=== PATIENT | male | born 1985 | race Caucasian/White ===

== ENCOUNTER 2024-05-11 07:51 | Day surgery (SDC) | payer OTHER ==
[~2024-05-11] VITALS: Ht 190.5 cm; Wt 86.3 kg
[~2024-05-11 07:51] MED LIST: LR 1,000 ML IV SCH; Ondansetron 4 MG/2 ML VIAL IV PRN
[2024-05-11 08:53] VITALS: BP 111/81; PULSE 53; TEMP 97.3
[2024-05-11] MEDS ORDERED: MOBIC15 MG PO (08:55)
[2024-05-11] MEDS ORDERED: ZOVIRAX400 MG PO (08:55)
[2024-05-11] MEDS ORDERED: PROTONIX 40MG T40 MG PO ×2 (08:56→09:27)
[2024-05-11] MEDS ORDERED: CRESTOR5 MG PO (09:01)
[2024-05-11] MEDS ORDERED: DESYREL 100MG100 MG PO (09:02)
[2024-05-11] MEDS ORDERED: Lidocaine PF 2% (20 MG/ML) 5 ML VIAL ONE (09:03)
[2024-05-11 09:30] VITALS: BP 107/82; PULSE 62
[2024-05-11 09:45] VITALS: BP 120/47; PULSE 73
[2024-05-11 10:00] VITALS: BP 117/82; PULSE 58
--- NOTE | 2024-05-11 14:20 | NUR ---
0930 PATIENT RETURNS TO [facility] [place] [facility] VIA CART. PT AWAKE AND ALERT. RESPIRATIONS UNLABORED. AMBULATED TO RECLINER CHAIR WITH 2:1 SBA. PT DENIES NAUSEA OR ABDOMINAL PAIN. HOOKED UP TO MONITOR AND VS OBTAINED. CALL LIGHT AT SIDE AND PRESENT. 0936 PATIENT TOLERATING JELLO AND COFFEE WITHOUT NAUSEA OR DIFFICULTY SWALLOWING. 0945 IN ROOM SPEAKING WITH PATIENT. 1000 D/C INSTRUCTIONS REVIEWED WITH PATIENT. PT VERBALIZED UNDERSTANDING AND A COPY OF INSTRUCTIONS PROVIDED IN D/C FOLDER. 1010 PATIENT DRESSES SELF. 1030 PATIENT DISCHARGED FROM UNIT VIA W/C TO A PERSONAL VEHICLE. PT LEFT HOSPITAL IN STABLE CONDITION.
== END 2024-05-11 10:30 | disposition home or self-care (01) ==
LOC: SDCO 07:51
DX: K21.00 Gastro-esophageal reflux disease with esophagitis, without bleeding (principal); K44.9 Diaphragmatic hernia without obstruction or gangrene; K22.2 Esophageal obstruction; K29.30 Chronic superficial gastritis without bleeding; Z79.899 Other long term (current) drug therapy
CPT/HCPCS: C1726; J2704; J7120